=== PATIENT | male | born 1970 | race Native Hawaiian/Other Pacific Islander ===

== ENCOUNTER 2017-03-06 15:22 | Observation (INO) | payer OTHER ==
[2017-03-06 15:26] VITALS: BMI 27.8
[2017-03-06] MEDS ORDERED: (Novolin R) Insulin Human Regular 100 units/ml vial IV STA (15:43)
--- NOTE | 2017-03-06 15:43 | C.PDOC ---
History Of Present Illness 46 year old male was brought to the ED by EMS after collapsing at a [employer] while intoxicated. Patient complaints of right sided weakness and right facial droop since approximately 3pm today. Patient arrived to ED and Code Stroke was called at 3:20pm. Time Seen by Provider: 03/06/17 15:25 Chief Complaint (Nursing): Weakness/Neurological Deficit History Per: EMS History/Exam Limitations: no limitations Onset/Duration Of Symptoms: Hrs Current Symptoms Are (Timing): Still Present Activity At Onset Of Symptoms: Standing Seizure Or Post-ictal Symptoms: None Fall Associated With With Symptoms: No Injury As Result Of Fall Recent travel outside of the [place]: No Additional History Per: Prior Records Past Medical History Reviewed: Historical Data, Nursing Documentation, Vital Signs Vital Signs: Last Vital Signs Temp 97.6 F 03/06/17 20:50 Pulse 99 H 03/06/17 20:50 Resp 18 03/06/17 20:50 BP 120/77 03/06/17 20:50 Pulse Ox 99 03/06/17 22:59 Family History: States: Unknown Family Hx - Social History Hx Alcohol Use: No Hx Substance Use: No Review Of Systems Constitutional: Positive for: Other (right facial droop ). Negative for: Fever , Chills Cardiovascular: Negative for: Chest Pain Respiratory: Negative for: Shortness of Breath Gastrointestinal: Negative for: Nausea, Vomiting, Abdominal Pain, Diarrhea Neurological: Positive for: Weakness (right sided weakness ), Seizures Physical Exam - Physical Exam Appears: Non-toxic, No Acute Distress Skin: Warm, Dry Head: Atraumatic, Other (mild right lower facial droop ) Eye(s): bilateral: Normal Inspection, PERRL, EOMI Oral Mucosa: Moist Neck: Supple Chest: Symmetrical, No Deformity Cardiovascular: Rhythm Regular, No Murmur Respiratory: Normal Breath Sounds, No Rales, No Rhonchi, No Wheezing Gastrointestinal/Abdominal: Soft, No Tenderness, No Distention, No Guarding, No Rebound Neurological/Psych: No Normal Speech (dysarthric), Other (2/5 strength in the right arm and right leg ) ED Course And Treatment - Laboratory Results Result Diagrams: 03/06/17 15:55 03/06/17 15:55 Lab Interpretation: Abnormal (elev glu, + leukocytosis) ECG: Interpreted By Me, Viewed By Me ECG Rhythm: Sinus Tachycardia ECG Interpretation: Abnormal Rate From EC O2 Sat by Pulse Oximetry: 99 Pulse Ox Interpretation: Normal - Radiology CXR: Interpreted by Me CXR Interpretation: Yes: No Acute Disease - Other Rad Code Stroke Head CT X-Ray: Read By Radiologist (no acute findings, read @ 1540) Progress Note: < 45 min after arrival, moving all extremities normally with 5/5 strength and facial droop resolved. Reevaluation Time: 18:43 Reassessment Condition: Improved (all extremity weakness and facial droop resolved) - Physician Consult Information Outcome Of Conversation: [address] conversations [address] Doherty, Neuro Obiee Consultant- much appreciated. will follow. 1830: d/w Dr. Root- Medicine Obiee Consultant- Ok to Tele obs. Critical Care Time - Critical Care Note Total Time (in mins): 90 Documented critical care: time excludes all time spent performing seperately billable procedures. NIHSS Stroke Scale - Date/Time Evaluation Performed Date Performed: 03/06/17 Time Performed: 15:20 When Was NIHSS Performed: Baseline - How Severe is the Stoke Level of Consciousness: 1=Drowsy LOC to Questions: 1=One correct LOC to commands: 1=Obeys one correctly Best Gaze: 0=Normal Visual: 0=No visual loss Facial: 2=Partial (lower face paralysis) Motor Arm - Left: 0=No drift Motor Arm - Right: 2=Falls before 10 sec Motor Leg - Left: 2=Falls before 5 sec Motor Leg - Right: 2=Falls before 5 sec Limb Ataxia: 0=Absent Sensory: 0=Normal Best Language: 2=Severe aphasia Dysarthia: 1=Mild to moderate slurring Extinction & Inattention (Neglect): 0=Normal, no object Score: 14 Severity Of Stroke: 5-15= Moderate Stroke rTPA Inclusion/Exclusion - Refusal of Treatment Patient Refused Treatment: No - Inclusion Criteria for Altepase Patient is 18 years or Older: Yes The Clinical Diagnosis of Ischemic Stroke That is Causing a Potentially Disabling Neurological Deficit: Yes Time of Onset is Well Established to be Less Than 270 Minute Before Treatment Would Begin: Yes Risk/Benefit Discussed With Patient/Family Member Present: No - Exclusion Criteria for Altepase Uncontrolled Hypertension at Time of Treatment (Systolic BP above 185 or Diastolic BP above 110 mmHg): No Active Internal Bleeding: No Known Bleeding Diathesis Including but Not Limited to: Platelets Below 100,000/ mm,PTT Above 40 sec After Heparin Use, Current Use of Oral Anitcoagulant With INR Greater Than 1.7 or PT Greater Than 15 secs: No Evidence of an Intracranial Hemorrhage: No Evidence of Major Acute Infarct With Signs Greater Than 1/3 MCA Territory: No Suspicion of Subarachnoid Hemorrhage on Pretreatment Evaluation Even if CT Head Negative For Hemorrhage: No - Warning to TPA With Conditions Following Conditions Weighed Against Anticipated Benefit: Yes Condition: Rapid Improvement Medical Decision Making Medical Decision Making: Patient's Head CT scan was negative. Discussed with Dr. Doherty who was online media director for neurology at 3:30pm to discuss TPA. At 4pm neurological stats improved, NIH score of approximately 2. TPA was deferred. Patient given aspirin by mouth successfully, despite garbled speech. h/o Seizure last 3 yrs ago, ? ETOH withdrawal seizures ? if seizure @ supermarket due to inadequate ETOH ? Farhad's Paralysis after the seizure- R side flacid with R facial droop, resolved quickly after arrival and normal head CT though persistent garbled speech Disposition Doctor Will See Patient In The: Hospital Counseled Patient/Family Regarding: Studies Performed, Diagnosis - Disposition Disposition: HOSPITALIZED Disposition Time: 18:53 Condition: GOOD - Clinical Impression Clinical Impression: Seizure, Alcohol abuse, Speech abnormality - Scribe Statement The provider has reviewed the documentation as recorded by the Scribe Lorene Shepherd All medical record entries made by the Domingoibenid were at my direction and personally dictated by me. I have reviewed the chart and agree that the record accurately reflects my personal performance of the history, physical exam, medical decision making, and the department course for this patient. I have also personally directed, reviewed, and agree with the discharge instructions and disposition.
--- NOTE | 2017-03-06 15:58 | CT ---
PROCEDURE: CT HEAD WITHOUT CONTRAST. HISTORY: Code Stroke COMPARISON: None available. TECHNIQUE: Axial computed tomography images were obtained through the head/brain without intravenous contrast. Radiation dose: Total exam DLP = 901 mGy-cm. This CT exam was performed using one or more of the following dose reduction techniques: Automated exposure control, adjustment of the mA and/or kV according to patient size, and/or use of iterative reconstruction technique. FINDINGS: HEMORRHAGE: No intracranial hemorrhage. BRAIN: There is cortical or medullary edema throughout the vang and white matter structures above below the tentorium. There is no mass effect. The ventricular sulcal and cisternal spaces appear within normal limits throughout. No suspicious extra-axial fluid collection is identified in the midline brain and appears unremarkable grossly. . VENTRICLES: Unremarkable. No hydrocephalus. CALVARIUM: Unremarkable. PARANASAL SINUSES: Unremarkable as visualized. No significant inflammatory changes. MASTOID AIR CELLS: Unremarkable as visualized. No inflammatory changes. OTHER FINDINGS: Midline and right occipital scalp hematoma identified, mild. IMPRESSION: No acute intracranial findings as discussed above. Incidental note is made of a mild midline and right occipital scalp hematoma Findings were reviewed and discussed with Dr. Lyles 03/06/2017 at 15:50, written down with readback verification.
[2017-03-06 16:01] LABS: BASO # 0.1 K/uL (0.0-0.2); BASO % 0.7 % (0.0-2.0); EOS # 0.2 K/uL (0.0-0.7); EOS % 1.2 % (0.0-4.0); HEMATOCRIT 39.9 % (35.0-51.0); LYMPH # 2.6 K/uL (1.0-4.3); LYMPH % 20.4 % (20.0-40.0); MEAN CELL VOLUME 82.9 fL (80.0-94.0); MEAN CORPUSCULAR HEMOGLOBIN 27.3 pg (27.0-31.0); MEAN PLATELET VOLUME 8.3 fL (7.2-11.7); MONO # 0.9 K/uL (0.0-0.8); MONO % 6.7 % (0.0-10.0); RED CELL DISTRIBUTION WIDTH 14.6 % (11.5-14.5); WHITE BLOOD COUNT 12.8 K/uL (4.8-10.8)
[2017-03-06 16:14] LABS: ALB/GLOB RATIO 1.5 (1.0-2.1); ALCOHOL SERUM 185 mg/dl (0-10); ALKALINE PHOSPHATASE 72 U/L (38-126); ALT/SGPT 31 U/L (21-72); AST/SGOT 20 U/L (17-59); BILIRUBIN,TOTAL 0.8 mg/dL (0.2-1.3); BLOOD UREA NITROGEN 16 mg/dL (9-20); CALCIUM 9.5 mg/dl (8.6-10.4); CARBON DIOXIDE 15 mmol/L (22-30); CHLORIDE 96 mmol/L (98-107); CHOLESTEROL 203 mg/dL (0-199); GFR AFRICAN-AMERICAN > 60; GLUCOSE,RANDOM 287 mg/dL (75-110); POTASSIUM 4.1 mmol/L (3.6-5.2); SODIUM 137 mmol/L (132-148); TOTAL PROTEIN 7.6 g/dL (6.3-8.3)
[2017-03-06] MEDS ORDERED: (Novolin R) Insulin Human Regular 100 units/ml vial ONE (16:21)
[2017-03-06] MEDS ORDERED: Sodium Chloride 0.9% 1,000 ML IV ONE (17:13)
[2017-03-06] MEDS ORDERED: Sodium Chloride 0.9% 1,000 ML ONE (17:16)
--- NOTE | 2017-03-06 17:21 | RAD ---
HISTORY: adm COMPARISON: No prior. FINDINGS: LUNGS: No active pulmonary disease. PLEURA: No significant pleural effusion identified, no pneumothorax apparent. CARDIOVASCULAR: Cardiac silhouette appears prominent. There is no pulmonary vascular derangement however. OSSEOUS STRUCTURES: No significant abnormalities. VISUALIZED UPPER ABDOMEN: Normal. OTHER FINDINGS: None. IMPRESSION: Prominent cardiac silhouette. No pulmonary vascular derangement identified. No acute infiltrate or pleural effusion identified.
[2017-03-06 18:09] LABS: RBC URINE < 1 /hpf (0-3); URINE BACTERIA RARE (<OCC); URINE BILIRUBIN NEGATIVE (NEGATIVE); URINE BLOOD NEGATIVE (NEGATIVE); URINE COLOR Yellow (YELLOW); URINE GLUCOSE (UA) 3+ mg/dL (Normal); URINE KETONE TRACE mg/dL (NEGATIVE); URINE LEUKOCYTE ESTERASE NEG Leu/uL (Negative); URINE PROTEIN 2+ mg/dL (NEGATIVE); URINE UROBILINOGEN NORMAL mg/dL (0.2-1.0)
--- NOTE | 2017-03-06 19:05 | CP.PCM.CON ---
History of Present Illness - History of Present Illness History of Present Illness: Mr. Whittaker is a 46-year-old man who is a chronic alcoholic, with a previous history of seizures (last one 5 years ago), states that he drank too much and fell. However, when he came to the ED, he was confused, dysarthric and had weakness of the left side. This weakness resolved completely and his speech cleared up. His initial NIHSS was 12, but it went down to a 1 (dysarthria, could be due to intoxication). Review of Systems - Review of Systems All systems: reviewed and no additional remarkable complaints except Past Patient History - Past Social History Smoking Status: Unknown If Ever Smoked - PSYCHIATRIC Hx Substance Use: No Meds Allergies/Adverse Reactions: Allergies Allergy/AdvReac Type Severity Reaction Status Date / Time No Known Allergies Allergy Verified 03/06/17 15:25 Physical Exam - Constitutional Appears: Well - Head Exam Head Exam: ATRAUMATIC, NORMAL INSPECTION, NORMOCEPHALIC - Eye Exam Eye Exam: EOMI, Normal appearance, PERRL - ENT Exam ENT Exam: Mucous Membranes Moist, Normal Exam - Neck Exam Neck exam: Positive for: Normal Inspection - Respiratory Exam Respiratory Exam: Clear to Auscultation Bilateral, NORMAL BREATHING PATTERN - Cardiovascular Exam Cardiovascular Exam: REGULAR RHYTHM - GI/Abdominal Exam GI & Abdominal Exam: Normal Bowel Sounds, Soft. absent: Tenderness - Rectal Exam Rectal Exam: Deferred - Extremities Exam Extremities exam: Positive for: normal inspection - Back Exam Back exam: NORMAL INSPECTION - Neurological Exam Neurological exam: Alert, CN II-XII Intact, Normal Gait, Oriented x3, Reflexes Normal Additional comments: Slight dysarthria noted - Expanded Neurological Exam Expanded Patient oriented to: person, place, time Cranial nerves: EOM's Intact: Normal, Facial Sensation: Normal Ataxia: No Cerebellar Function: Finger to Nose: Normal, Heel to Garcia: Normal Upper motor neuron: Babinski Sign: Normal Sensory exam: Lower Extremity 2 Point Discrimination: Normal, Lower Extremity Light Touch: Normal, Lower Extremity Pin Prick: Normal, Lower Extremity Temperature: Normal, Upper Extremity 2 Point Discrimination: Normal, Upper Extremity Light Touch: Normal, Upper Extremity Pin Prick: Normal, Upper Extremity Temperature: Normal Neuro motor strength exam: Left Upper Extremity: 5, Right Upper Extremity: 5, Left Lower Extremity: 5, Right Lower Extremity: 5 DTR: Achilles Tendon Left: 2+, Achilles Tendon Right: 2+, Bicep Left: 2+, Bicep Right: 2+, Brachioradialis Left: 2+, Brachioradialis Right: 2+, Patellar Left: 2 +, Patellar Right: 2+, Tricep Left: 2+, Tricep Right: 2+ - Psychiatric Exam Psychiatric exam: Agitated - Skin Skin Exam: Dry, Intact, Normal Color, Warm Results - Vital Signs Recent Vital Signs: Last Vital Signs Temp 97.6 F 03/06/17 17:01 Pulse 108 H 03/06/17 18:44 Resp 18 03/06/17 18:44 BP 123/81 03/06/17 18:44 Pulse Ox 99 03/06/17 18:54 - Labs Result Diagrams: 03/06/17 15:55 03/06/17 15:55 - Imaging and Cardiology CT scan - head Status: Image reviewed by me, Report reviewed by me (No acute findings. ) Assessment & Plan (1) Seizure Assessment and Plan: The patient likely had Farhad's paralysis after his fall with possible seizure as the inciting event. The patient should be treated with CIWA protocol to avoid alcohol withdrawal seizure. I recommend obtaining an MRI and an EEG for further evaluation. Status: Acute Priority: High
[2017-03-06] MEDS ORDERED: Folic Acid 1 MG, Thiamine 100 MG, Multivitamin (MVI) 10 ML in Dextrose 5% In Water 1,00... IV SCH (20:00)
[2017-03-06] MEDS: (Novolin R) Insulin Human Regular 100 units/ml vial SC SCH (21:18)
[2017-03-07 00:08] VITALS: RESP 20
[2017-03-07] MEDS: (Novolin R) Insulin Human Regular 100 units/ml vial SC SCH ×3 (08:03→18:16)
[2017-03-07 08:59] VITALS: O2SAT 96
[2017-03-07 15:15] VITALS: BP 139/93; TEMP 97.2
[2017-03-07 16:08] VITALS: PULSE 96
--- NOTE | 2017-03-08 01:09 | HP ---
CHIEF COMPLAINT: Right-sided weakness, altered mental status. HISTORY OF PRESENT ILLNESS: This is a 46-year-old young male with a history of chronic heavy alcoholism. He had a previous history of seizure disorder. Last seizure was five years ago and on the day of admission, he drank too much and he had a fall. He was brought into the emergency room by his father. He was found to be altered, confused, dysarthric, and had a weakness on the right side of the body and code stroke was called in initially, but later on weakness got resolved. CT head was normal and the patient was hospitalized. The patient is alcoholic even though he denies and the patient has some headache. He is weak. He is confused. He is restless. He denies any fever, chills, or rigors. He denies any cough, sore throat, runny nose. He denies any history of nausea, vomiting, or diarrhea. He denies any history of polyuria, polydipsia, polyplegia. He denies any history of hematuria or pyuria. He denies any history of sneezing, itchy eyes, or itchy nose. No history of abdominal pain or rectal pain. There is no history of trauma or fall. The patient does not remember all the events and there is no history of tongue bite or incontinence of urine. REVIEW OF SYSTEMS: No fever, chills. He denies any history of tongue bite. He has headache. He denies any back pain, hip pain. ALLERGIES: NO KNOWN ALLERGIES. CURRENT MEDICATIONS: None. PAST MEDICAL HISTORY: Seizure disorder, alcoholism. PHYSICAL EXAMINATION: GENERAL: Middle-aged male in no acute distress, feels weak. He is in the bed. VITAL SIGNS: Blood pressure 123/81, pulse 100, respiratory rate 18, temperature 97.6. SKIN: Dry. No turgor. No bruises. No purpura. No petechiae. HEENT: Atraumatic and normocephalic. Negative pallor. Negative jaundice. Extraocular movements are intact. NECK: Supple. No JVD. LUNGS: Bilaterally clear. No rales. No rhonchi. CVS: S1 and S2 regular. ABDOMEN: Soft, nontender. Bowel sounds are positive. RECTAL: Normal. EXTREMITIES: No clubbing, cyanosis, or edema. CENTRAL NERVOUS SYSTEM: The patient is awake, alert and oriented x3. Cranial nerves II through XII are normal. Power is 5/5 x4. Plantars are downgoing. ASSESSMENT: 1. Seizure, alcohol induced. 2. Alcohol intoxication. 3. Farhad's paralysis. PLAN: Admit, neuro check, fall, seizure precaution, and monitor the patient for any new weakness. Aram Root MD
--- NOTE | 2017-03-19 20:35 | CARD ---
APPROVED REPORT EKG Measurement Heart [id number] <Conclusion> Sinus tachycardia Possible Left atrial enlargement Left ventricular hypertrophy with repolarization abnormality Abnormal ECG
== END 2017-03-07 21:05 | disposition left against medical advice (07) ==
LOC: C.ER 15:22 → C.9E 18:40 → C.6T 19:30
PROVIDERS: ADMIT Internal Medicine; ATTEND Internal Medicine
DX: F10.229 Alcohol dependence with intoxication, unspecified (principal); T51.0X1A Toxic effect of ethanol, accidental (unintentional), initial encounter; Y90.6 Blood alcohol level of 120-199 mg/100 ml; G83.84 Todd's paralysis (postepileptic); G40.909 Epilepsy, unspecified, not intractable, without status epilepticus
CPT/HCPCS: 70450; 71010; 80053; 80061; 80320; 80324; 80345; 80346; 80349; 80353; 80358; 80361; 81001; 82948; 83036; 83992; 84484; 85025; 85610; 85730; 86850; 86900; 96374; 99285; G0378; J2060; J3411; J7040; J7070